=== PATIENT | male | born 1935 | race Caucasian/White ===

== ENCOUNTER 2018-11-12 16:51 | Inpatient (IN) | payer MEDICARE ==
[2018-11-12 17:22] LABS: Hemoglobin 12.5 g/dL (14.0-18.0); Mean Corpuscular HGB CONC 33.7 g/dL (32.0-36.0); Mean Corpuscular Hemoglobin 30.2 pg (27.0-31.0); Mean Corpuscular Volume 89.7 fL (78.0-98.0); Mean Platelet Volume 6.7 fL (7.4-10.4); Platelet Count 284 thou/uL (130-400); RBC Distribution Width 13.7 % (11.5-14.5); Red Blood Cell (RBC) Count 4.13 mill/uL (4.70-6.10); White Blood Cell (WBC) Count 5.7 thou/uL (4.8-10.8)
[2018-11-12 17:39] LABS: Band 4 % (5-11); Eosinophils 13 % (0-10); Lymphocytes 20 % (21-51); MDiff Complete? YES; Monocytes 12 % (0-10); Neutrophil 49 % (42-75); Platelet Morphology Comment Appears Adequate; RBC Morphology Normal
--- NOTE | 2018-11-12 17:44 | RAD ---
CHEST ONE VIEW: INDICATIONS: Shortness of breath. COMPARISON: 08/03/2016 FINDINGS: There is stable cardiomegaly and mild pulmonary vascular prominence. Chronic lung changes are stable . A dual-lead pacemaker is stable. No acute osseous abnormality is evident. IMPRESSION: Stable examination. POS: BH
[2018-11-12 17:51] LABS: ALT (SGPT) 12 U/L (8-55); AST (SGOT) 17 U/L (5-34); Albumin 3.7 g/dL (3.4-4.8); Alkaline Phosphatase 84 U/L (40-150); Anion Gap 13 mmol/L (10-20); BUN (Urea Nitrogen) 20 mg/dL (8.4-25.7); Bilirubin, Total 0.7 mg/dL (0.2-1.2); CK (CPK) 62 U/L (30-200); Calc. Creatinine Clearance 0 mL/min (70-130); Calcium 9.5 mg/dL (7.8-10.44); Carbon Dioxide 32 mmol/L (23-31); Chloride 100 mmol/L (98-107); Estimated GFR-MDRD 47; Globulin 4.4 g/dL (2.4-3.5); Glucose 76 mg/dL (83-110); Potassium 3.5 mmol/L (3.5-5.1); Protein, Total 8.1 g/dL (5.8-8.1); Sodium 141 mmol/L (136-145)
[2018-11-12 21:06] LABS: Bilirubin Negative (Negative); Blood, Urine Negative (Negative); Clarity Clear (Clear); Glucose, Urine (Dipstick) Normal (Negative); Leukocyte 25 Leu/uL (Negative); Mucous/LPF 2+ LPF (<2+); Nitrite Negative (Negative); Protein, Urine (Dipstick) Negative (Neg-Trace); RBC/HPF 0-3 HPF (0-3); Squamous Epithelial 0-3 HPF (0-3); Urobilinogen Normal mg/dL (Less than 2)
[2018-11-12 21:23] LABS: Bacteria/HPF Rare-Few HPF (None Seen)
[2018-11-12] MEDS ORDERED: Acetaminophen 650 MG Suppository PR PRN (23:30)
[2018-11-12] MEDS ORDERED: Ondansetron PF 4 MG/2 ML Vial IVP PRN (23:30)
[2018-11-12] MEDS ORDERED: Acetaminophen 325 MG TAB PO PRN (23:30)
[2018-11-12] MEDS ORDERED: Ondansetron ODT 4 MG TAB PO PRN (23:30)
[2018-11-12 23:31] VITALS: BMI 28.0
[2018-11-13 00:14] LABS: Lactic Acid 1.6 mmol/L (0.5-2.2)
[2018-11-13] MEDS ORDERED: Carvedilol 6.25 MG TAB PO SCH (00:45)
--- NOTE | 2018-11-13 00:51 | HP ---
PRIMARY CARE PHYSICIAN: Dr. Pancho Thurston. CHIEF COMPLAINT: Shortness of breath. HISTORY OF PRESENT ILLNESS: Mr. Lira is an 83-year-old man with a known history of CHF and also previous smoker. He presents complaining of progressively worsening shortness of breath for the last 3 days. He states he has had a cough for about a week, which he feels is rattly, but is unable to bring up any sputum. Denies having any fevers or chills, but reports feeling generally unwell. He states his shortness of breath tends to be worse at night and last night was at its worst. He states he was unable to sleep and felt that he could not get enough air. He opted to seek medical attention today. The patient was noted to have sats of 97% on room air on arrival to the emergency department. However, the patient had significant wheezing on exam, therefore was placed on 2 L of oxygen. He was also given DuoNebs and started on IV antibiotics for presumed pneumonia. He underwent laboratory studies which showed a normal white count of 5.7, hemoglobin of 12.5, and platelet count of 24, neutrophils 49. His creatinine was 1.43 and at baseline. He had a BNP checked, which was 446.4. No previous to compare to. A chest x-ray was done, which evidently showed stable cardiomegaly and mild pulmonary vascular prominence with chronic lung changes stable. Dr. Martinez however felt strongly that the patient likely had an infectious upper respiratory process given the cough and rales heard on exam. At this present time, following DuoNeb, the patient is feeling significantly better. He is resting comfortably in bed. Denies any other complaints. Reports having a good appetite. No urinary symptoms or bowel changes. Denies any chest pain. No hemoptysis. No lower leg edema. All other review of systems negative. PAST MEDICAL HISTORY: 1. Hypertension. 2. CHF. 3. Atrial fibrillation. 4. Pacemaker. 5. History of bladder tumor. 6. History of sick sinus syndrome. PAST SURGICAL HISTORY: 1. Pacemaker placement. 2. Right shoulder replacement. 3. Foot surgery. 4. Testicle removed. 5. TURP. SOCIAL HISTORY: The patient lives at home. Denies any alcohol use. He previously smoked heavily, but quit 2 years ago. He has a 70 pack-year smoking history. ALLERGIES: 1. IODINE. 2. PENICILLIN. CURRENT MEDICATIONS: 1. Bumetanide. 2. Tamsulosin. 3. Xarelto. 4. Atorvastatin. 5. Carvedilol. 6. Potassium. 7. Hydralazine. PHYSICAL EXAMINATION: GENERAL: The patient appears well developed, well nourished, and is in no acute distress. VITAL SIGNS: Temperature 98.7, pulse 77, respirations 20, O2 saturation 96% on 2 L, and blood pressure 152/71. HEENT: Normocephalic and atraumatic. Pupils are equal, round, reactive to light. Sclerae are without icterus. Oropharynx is clear. NECK: Supple. LUNGS: Notable for expiratory wheezing bilaterally in the upper and lower lung pappas. No crackles. CARDIAC: Normal heart sounds. No erythema or edema surrounding the pacemaker. No chest wall tenderness. ABDOMEN: Soft, nontender, nondistended. Normoactive bowel sounds present. EXTREMITIES: No lower leg swelling or edema. He does have a diffuse rash, which he states is long-standing. Seen by a laborer chicken farm in the past for this. IMPRESSION AND PLAN: Mr. Lira is a pleasant 83-year-old man with a history of congestive heart failure and long-term smoker, but not diagnosed to have chronic obstructive pulmonary disease and not normally on oxygen at home, who presents with progressive shortness of breath for the last 3 days. He is being referred for management of the followin. Pneumonia. The patient had a chest x-ray that was read as stable when compared to prior, though showing mild changes with congestive heart failure. There were no pleural effusions, pulmonary edema, or a sign of a pneumonia; however, clinically Dr. Martinez was concerned for pneumonia, therefore has started him on IV antibiotics. We will add on lactic acid and procalcitonin. We will continue DuoNebs which seemed to be helping the patient feel better. For his cough, we will give guaifenesin and Tessalon. 2. Hypertension. Resume home medications once verified. Monitor blood pressure. 3. Hyperlipidemia. Resume home medications once verified. 4. Gastrointestinal prophylaxis. 5. Deep venous thrombosis prophylaxis with mechanical SCDs. 6. Code status DNAR. The patient states his surrogate decision maker would be his daughters, Radha Shaver and Rhonda Gan. The patient's case will be discussed with attending for further recommendations. Job ID: [id number] MTDD
[2018-11-13 05:00] LABS: Anion Gap 12 mmol/L (10-20); BUN (Urea Nitrogen) 23 mg/dL (8.4-25.7); Calc. Creatinine Clearance 55 mL/min (70-130); Calcium 8.9 mg/dL (7.8-10.44); Carbon Dioxide 30 mmol/L (23-31); Chloride 102 mmol/L (98-107); Estimated GFR-MDRD 57; Glucose 102 mg/dL (83-110); Potassium 3.4 mmol/L (3.5-5.1); Sodium 141 mmol/L (136-145)
[2018-11-13 05:16] LABS: Hemoglobin 10.8 g/dL (14.0-18.0); Mean Corpuscular HGB CONC 33.6 g/dL (32.0-36.0); Mean Corpuscular Hemoglobin 30.1 pg (27.0-31.0); Mean Corpuscular Volume 89.4 fL (78.0-98.0); Mean Platelet Volume 6.7 fL (7.4-10.4); Platelet Count 242 thou/uL (130-400); RBC Distribution Width 13.5 % (11.5-14.5); White Blood Cell (WBC) Count 6.4 thou/uL (4.8-10.8)
[2018-11-13 05:17] LABS: Eosinophils 3 % (0-10); Hypochromia SLIGHT = 6-15 cells (100X) (0-5/hpf); Lymphocytes 11 % (21-51); MDiff Complete? YES; Monocytes 11 % (0-10); Neutrophil 75 % (42-75); Nucleated RBC 1 % (0); Platelet Morphology Comment Appears Adequate
[2018-11-13] MEDS: hydrALAZINE 25 MG TAB PO SCH ×3 (08:44→17:22)
[2018-11-13] MEDS: Amlodipine 5 MG TAB PO SCH (08:45)
[2018-11-13] MEDS: Atorvastatin Calcium 40 MG TAB PO SCH (08:45)
[2018-11-13] MEDS: Benzonatate 100 MG CAP PO SCH ×3 (08:46→21:16)
[2018-11-13] MEDS: Tamsulosin HCl 0.4 MG CAP PO SCH (08:46)
[2018-11-13] MEDS: Carvedilol 6.25 MG TAB PO SCH ×2 (08:46→21:16)
[2018-11-13] MEDS: Bumetanide 1 MG TAB PO SCH (08:46)
[2018-11-13] MEDS: Famotidine/PF 20 mg/2ml Vial SLOW IVP SCH (08:46)
[2018-11-13] MEDS ORDERED: Rivaroxaban 10 MG TAB PO SCH (09:00)
[2018-11-13] MEDS ORDERED: Furosemide 20 MG/2 ML VIAL SLOW IVP SCH (10:30)
[2018-11-13] MEDS: Furosemide 20 MG/2 ML VIAL SLOW IVP SCH (14:02)
[2018-11-13] MEDS: Vancomycin HCl 1.25 GM in Sodium Chloride 0.9% 250 ML 250 ML IVPB SCH (14:21)
[2018-11-13] MEDS: guaiFENesin 200 MG TAB PO PRN (14:53)
--- NOTE | 2018-11-13 16:32 | PRG ---
DATE OF SERVICE: 11/13/2018 SUBJECTIVE: Mr. Lira is a pleasant 83-year-old male with past medical history significant for chronic diastolic heart failure per last echo in 2013, hypertension, presence of cardiac pacemaker as well as presumed COPD with a 80-glrw-zlvy smoking history, who presented to the hospital with complaints of worsening shortness of breath. He described both worsening dyspnea on exertion as well as orthopnea along with cough. The patient has been treated with IV antibiotics as well as breathing treatments. He does feel much improved, although is not back to his baseline. He does tell me that he was hospitalized several weeks ago with acute CHF exacerbation, and his medications were adjusted and he was taken off his loop diuretic, and this was replaced with Bumex. In any case, the patient is improving. He denies any chest pain today. States the "rattling" in his lungs is improved. No nausea or vomiting. Good appetite. OBJECTIVE: VITAL SIGNS: Blood pressure is 139/62, pulse is 84, O2 saturation is 93% on 2 L O2 via nasal cannula, pulse is 78. The patient is afebrile at 97.8 degrees Fahrenheit. GENERAL: The patient is a moderately obese male, sitting at the edge of the bed, eating breakfast. He is in no acute distress. HEENT: Head is atraumatic and normocephalic. Mucous membranes are moist. NECK: Trachea is midline. No obvious JVD. CV: S1 and S2. Regular rate and rhythm. No appreciable murmurs, rubs, or gallops. LUNGS: Regular respiratory rate and pattern. No rhonchi. Faint crackles at the bases. ABDOMEN: Positive bowel sounds. Soft and nontender. EXTREMITIES: No edema. SKIN: Warm and dry. NEUROLOGIC: Cranial nerves 2 through 12 are grossly intact. The patient is nonfocal. LABORATORY DATA: White blood cell count 6.4, hemoglobin 10.8, hematocrit 32.8. Sodium 141, potassium 3.4, BUN is 23, creatinine is 1.21. ASSESSMENT: 1. Shortness of breath secondary to combined acute chronic obstructive pulmonary disease exacerbation and acute congestive heart failure exacerbation. 2. History of cardiomyopathy with improved ejection fraction per echo 2013, last ejection fraction noted in the chart is 50% to 55%. 3. Chronic diastolic heart failure. 4. The patient with prolonged smoking history and presumed chronic obstructive pulmonary disease. 5. Paroxysmal atrial fibrillation, CHADS-VASc at least 4, anticoagulated with Xarelto. 6. Pacemaker in-situ. 7. Shbzy-qq-mfnothb renal insufficiency at presentation, creatinine has drifted back down to baseline. PLAN: At this time, we will continue pulmonary toilet with DuoNeb and IV antibiotics. Given the patient's elevated BNP of over 400 as well as history of heart failure, we will add gentle IV diuresis and monitor his electrolytes and renal function closely. His echocardiogram is still pending at the time of my dictation. Certainly, if his EF has worsened, he may need Cardiology consult. Overall, the patient is improving. Job ID: [id number]
[2018-11-13] MEDS ORDERED: Prevnar 13-Val Conj/PF 0.5 ML SYRINGE IM ONE (21:00)
[2018-11-14 04:59] LABS: Anion Gap 9 mmol/L (10-20); BUN (Urea Nitrogen) 26 mg/dL (8.4-25.7); Calc. Creatinine Clearance 51 mL/min (70-130); Carbon Dioxide 33 mmol/L (23-31); Chloride 103 mmol/L (98-107); Estimated GFR-MDRD 54; Glucose 107 mg/dL (83-110); Potassium 3.1 mmol/L (3.5-5.1); Sodium 142 mmol/L (136-145)
[2018-11-14] MEDS: Furosemide 20 MG/2 ML VIAL SLOW IVP SCH (07:23)
[2018-11-14] MEDS ORDERED: Potassium Chloride 20 MEQ TAB PO SCH ×2 (07:45→10:00)
[2018-11-14] MEDS: hydrALAZINE 25 MG TAB PO SCH ×2 (08:55→11:01)
[2018-11-14] MEDS: Amlodipine 5 MG TAB PO SCH (08:55)
[2018-11-14] MEDS: Tamsulosin HCl 0.4 MG CAP PO SCH (08:56)
[2018-11-14] MEDS: Bumetanide 1 MG TAB PO SCH (08:56)
[2018-11-14] MEDS: Benzonatate 100 MG CAP PO SCH ×2 (08:56→14:19)
[2018-11-14] MEDS: Atorvastatin Calcium 40 MG TAB PO SCH (08:56)
[2018-11-14] MEDS: Carvedilol 6.25 MG TAB PO SCH (08:56)
[2018-11-14] MEDS: Famotidine/PF 20 mg/2ml Vial SLOW IVP SCH (08:57)
[2018-11-14] MEDS ORDERED: Furosemide 20 MG TAB PO SCH (09:00)
[2018-11-14] MEDS: guaiFENesin 200 MG TAB PO PRN (11:01)
[2018-11-14 13:47] LABS: Vancomycin, Trough 9.1 ug/mL
[2018-11-14] MEDS: Vancomycin HCl 1.25 GM in Sodium Chloride 0.9% 250 ML 250 ML IVPB SCH (14:20)
--- NOTE | 2018-11-14 14:22 | PQF ---
CLINICAL DOCUMENTATION IMPROVEMENT CLARIFICATION FORM: ICD-10 Updated PLEASE DO AN ADDENDUM TO THE PROGRESS NOTE WITH ANY DOCUMENTATION UPDATES OR ADDITIONS AND CARRY THROUGH TO DC SUMMARY. THANK YOU. DATE: 11/14/2018 ATTN: Devorah Squires PA-C Please exercise your independent, professional judgment in responding to the clarification form. Clinical indicators are provided on the bottom of this form for your review Please check appropriate box(s): [ ] Acute Renal Failure (ARF) / Acute Kidney Injury (CARYN) [ X ] Acute on Chronic Renal Failure please specify Stage of CKD ___III (see below) [ ] CKD without ARF/CARYN please specify Stage of CKD [ ] Other diagnosis [ ] Unable to determine In addition, please specify: Present on Admission (POA): [ X] Yes [ ] No [ ] Unable to determine For continuity of documentation, please document condition throughout progress notes and discharge summary. Thank You. CLINICAL INDICATORS - SIGNS / SYMPTOMS / LABS PN 11/13 (Shaw): creatinine 1.21 Jweeq-vu-egqvppc renal insufficiency at presentation, creatinine has drifted back down to baseline 11/12 11/14 LABS: Creatinine 1.43 1.28 Estimated GFR 47 54 RISKS: H&P 11/13: PMH HTN, CHF, ATRIAL FIB. TREATMENT: PN 11/13: Given the pt's elevated BNP >400 as well as hx of heart failure, will add gentle IV diuresis and monitor his electrolytes and renal function closely. National Kidney Foundation Guidelines for CKD Staging Stage I Kidney damage with normal or increased GFR GFR > 90 Stage II Kidney damage with mildly decreased GFR GFR 60-89 Stage III Kidney damage with moderately decreased GFR GFR 30-59 Stage IV Kidney damage with severely decreased GFR GFR 16-29 Stage V Kidney failure GFR<15 ESRD End Stage Renal Disease On dialysis Acute Renal Failure/Acute Kidney Failure defined as: Increases in SCr by (>) 0.3 mg/dl within 48 hours OR- Increases in SCr by (>) 1.5 times baseline, known or presumed to have occurred within the prior 7 days OR- Urine volume < 0.5 ml/kg/hour for 6 hours (KDIGO supplement 2012 for RIFLE/MIRYAM criteria) Thank you, Gia (This form is maintained as a part of the permanent medical record) 2014 [employer] All Rights Reserved Gia Edwards RN, BSN [email or web address] Office: [phone] [facility] HOSPITALStacy
[2018-11-14 14:28] LABS: Potassium 3.4 mmol/L (3.5-5.1)
[2018-11-14 15:45] VITALS: BP 145/81; TEMP 97.6
[2018-11-14] MEDS ORDERED: Vancomycin HCl 1.5 GM in Sodium Chloride 0.9% 250 ML 300 ML IVPB SCH (16:00)
--- NOTE | 2018-11-14 16:27 | DIS ---
DATE OF ADMISSION: 11/12/2018 DATE OF DISCHARGE: 11/14/2018 CHIEF COMPLAINT ON ADMISSION: Shortness of breath. DISCHARGE DIAGNOSES: 1. Shortness of breath secondary to combined acute chronic obstructive pulmonary disease exacerbation and acute congestive heart failure exacerbation. 2. Heart failure with preserved ejection fraction, echocardiogram in this hospitalization revealed ejection fraction estimated at 50% to 55%. 3. A 38-pdpw-wety smoking history, with the patient quitting 2 years ago, presumed chronic obstructive pulmonary disease. No formal PFTs on record. 4. Paroxysmal atrial fibrillation, CHADS-VASc at least 4, anticoagulated with Xarelto. 5. Pacemaker in-situ. 6. Fyppd-jr-aefsfgk renal insufficiency at presentation; chronic kidney disease, stage 3, resolved. BRIEF HOSPITAL COURSE: The patient is a pleasant, 83-year-old, male with past medical history as outlined above, who presented to the hospital with complaints of worsening shortness of breath. The patient described both dyspnea on exertion as well as orthopnea. He also had some "rattling" in his lungs and what felt to be a productive cough, although he could never get up any sputum. Because of his worsening symptoms, he did present to the emergency department for further workup and treatment. His chest x-ray was clear of any pneumonia, although secondary to his symptoms, COPD exacerbation was suspected. He was treated with IV antibiotics as well as DuoNeb. His BNP was noted to be over 400, and he was gently diuresed. His creatinine on arrival to the hospital was 1.43, and it is now 1.28. The patient has ambulated the halls and maintained his oxygen saturations. He states that he is back to his baseline. At this time, he denies any chest pain or shortness of breath. DISCHARGE DISPOSITION: Home. DISCHARGE CONDITION: Stable. DISCHARGE MEDICATIONS: He will continue his home medications, which include: 1. Amlodipine 2.5 mg daily. 2. Atorvastatin 40 mg p.o. daily. 3. Bumetanide 2 mg p.o. daily. 4. Carvedilol 12.5 mg p.o. b.i.d. 5. Hydralazine 50 mg p.o. t.i.d. 6. K-Dur 20 mEq p.o. b.i.d. 7. Rivaroxaban 20 mg p.o. daily. 8. Tamsulosin 0.4 mg p.o. daily. He will restart his Lasix at 20 mg p.o. daily. New medication will be levofloxacin 500 mg p.o. daily x5 days. DISCHARGE INSTRUCTIONS AND FOLLOWUP: The patient will follow up with both his primary activity specialist, Dr. Rojas as well as his primary care physician, who is Dr. Thurston in [place]. All findings of testing and diagnoses have been explained to the patient, and all questions were answered. I have advised for him to talk to Dr. Thurston about a possible Pulmonary referral for formal PFTs given his extensive smoking history and likely diagnosis of COPD. He will return to the hospital with any return or worsening of symptoms. Job ID: [id number]
[2018-11-14] MEDS ORDERED: Rivaroxaban 15 MG TAB PO SCH (17:00)
--- NOTE | 2018-11-15 15:41 | EKG ---
Test Reason : Blood Pressure : / mmHG Vent. Rate : 077 BPM Atrial Rate : 072 BPM P-R Int : 000 ms QRS Dur : 174 ms QT Int : 488 ms P-R-T Axes : 000 -74 090 degrees QTc Int : 552 ms Electronic ventricular pacemaker Confirmed by ZIA JALLOH, DANIELLE Naqvi ([id number]), sound editor MACHO SMITH ([id number]) on 11/15/2018 3:40:54 PM Referred By: Confirmed By:DANIELLE LIZARRAGA MD
== END 2018-11-14 16:19 | disposition home or self-care (01) | DRG 291 ==
LOC: ERS 16:51 → 2SE 21:56
PROVIDERS: ADMIT Internal Medicine; ATTEND Internal Medicine
DX: I13.0 Hypertensive heart and chronic kidney disease with heart failure and stage 1 through stage 4 chronic kidney disease, or unspecified chronic kidney disease (principal); I50.33 Acute on chronic diastolic (congestive) heart failure; N17.9 Acute kidney failure, unspecified; J44.1 Chronic obstructive pulmonary disease with (acute) exacerbation; Z66 Do not resuscitate; N18.3 Chronic kidney disease, stage 3 (moderate); I48.0 Paroxysmal atrial fibrillation; I49.5 Sick sinus syndrome; E78.5 Hyperlipidemia, unspecified; I42.9 Cardiomyopathy, unspecified; Z79.01 Long term (current) use of anticoagulants; Z95.0 Presence of cardiac pacemaker; Z87.891 Personal history of nicotine dependence; Z88.0 Allergy status to penicillin; Z79.899 Other long term (current) drug therapy; Z91.041 Radiographic dye allergy status
CPT/HCPCS: 36415; 71045; 80048; 80053; 80202; 81003; 81015; 82550; 83605; 83880; 84145; 84484; 85025; 87040; 87149; 90471; 90670; 93005; 93306; 93798; 94640; 96365; 96366; 96367; G0009; J1940; J1956; J3370; J7050; J7620; S0028

== ENCOUNTER 2019-02-07 13:11 | Outpatient (CLI) | payer MEDICARE ==
--- NOTE | 2019-02-07 15:08 | CT ---
CT CHEST WITHOUT CONTRAST HIGH RESOLUTION: CLINICAL HISTORY: Idiopathic pulmonary fibrosis. COMPARISON: No prior CT thorax imaging available for comparison. FINDINGS: There is diffuse interstitial septal thickening with scattered subpleural interstitial and alveolar o pacities. Mild bronchiectasis is present bilaterally. There is superimposed bilateral pulmonary emphysema. Mild prominence of mediastinal lymph nodes is incompletely evaluated. The largest lymph node of the p recarinal region as demonstrated is1.6 cm in diameter. Scattered atherosclerotic vascular disease. IMPRESSION: Scattered subpleural interstitial and ground glass opacities as well as generalized interstitial sept al thickening throughout each lung, with mild associated bronchiectasis is consistent with idiopathic pulmonary fibrosis. Incidental note of mediastinal adenopathy, incompletely evaluated on the basis of this exam. Transcribed Date/Time: 02/07/2019 3:35 PM
--- NOTE | 2019-02-08 11:27 | PFT ---
PATIENT HISTORY: HEIGHT: 68 IN WEIGHT: 190 LBS SMOKER: NO HOW LON YRS PACKS PER DAY: 1.5 PRODUCTIVE COUGH: LUNG DISEASE: PHYSICIAN INTERPRETATION FINAL REPORT: Patient had good effort and good cooperation. FVC 2.60 (54%), FEV1 2.58 (73%), FEV1/FVC 0.66. RV 1.58 (55%), TLC 4.29 (67%) DIFFUSION 9.29 (37%) There is a mostly symmetric reduction to both the FEV1 and FVC. The ratio is just below the lower limits of normal, which maybe a normal variant for an 84 year old. Residual Volume and Total Lung Capacity are reduced confirming volume restriction. Diffusion Capacity is severely impaired. IMPRESSION: Overall, these pulmonary function studies are consistent with moderate restrictive lung process with no significant improvement following bronchodilator and severe reduction in gas exchange. Minimal superimposed obstructive component cannot be completely excluded. Nuclear Fuels Reclamation Engineer: SHAY Requirements Analyst: SHAY STRICKLAND
== END 2019-02-07 13:12 | disposition home or self-care (01) ==
LOC: CP 13:11 → CT 13:12
PROVIDERS: ATTEND Internal Medicine Critical Care Medicine
DX: J84.10 Pulmonary fibrosis, unspecified (principal); R06.00 Dyspnea, unspecified; R91.8 Other nonspecific abnormal finding of lung field; J47.9 Bronchiectasis, uncomplicated; R59.0 Localized enlarged lymph nodes
CPT/HCPCS: 71250; 94060; 94727; 94729

== ENCOUNTER 2019-05-16 00:55 | Inpatient (IN) | payer MEDICARE ==
--- NOTE | 2019-05-16 01:24 | PDOC.HHP ---
Hospitalist HPI - History of Present Illness History of Present Illness: multifocal pneumonia hawk villavicencio 2L has tire repairman
[2019-05-16] MEDS ORDERED: Sodium Chloride 0.9% 1,000 ML IV SCH (03:30)
[2019-05-16 03:31] VITALS: BMI 30.2
[2019-05-16] MEDS ORDERED: cefTRIAXone\\ROCEPHIN 1 GM in Sodium Chloride 0.9% 100 ML IVPB SCH (04:00)
[2019-05-16] MEDS ORDERED: Azithromycin 500 MG in Sodium Chloride 0.9% 250 ML 250 ML IVPB SCH (05:00)
[2019-05-16] MEDS ORDERED: Acetaminophen 325 MG TAB PO PRN (08:45)
[2019-05-16] MEDS: Famotidine 20 MG TAB PO SCH ×2 (09:34→20:20)
--- NOTE | 2019-05-16 12:48 | HP ---
CHIEF COMPLAINT: Shortness of breath and cough. HISTORY OF PRESENT ILLNESS: The patient is an 84-year-old male, who presented to the [place] [facility] with sudden onset of a shortness of breath associated with dry cough, fever, and chills. Apparently, he was doing quite well until last night when everything started. He was found to have pneumonia on the CT and x-rays of his chest and sent to our facility for further management of his pneumonia and CHF. He denies any vomiting, but he had some nausea. When he is asked specifically about the chest pain, he denies any chest pain, although he mentioned about the chest pain to the emergency room staff. PAST MEDICAL HISTORY: Positive for; 1. Congestive heart failure. 2. Chronic atrial fibrillation. 3. Coronary artery disease. 4. Hypertension. 5. Osteoarthritis. 6. Pacemaker. PAST SURGICAL HISTORY: 1. Malignant tumor bladder, urinary bladder resection. 2. Cardiac pacemaker placement. 3. Cholecystectomy. 4. Transurethral resection of the prostate. PRIMARY CARE PHYSICIAN: Dr. Griffith in [place]. SURROGATE DECISION MAKER: Capri, the patient's daughter. MEDICATIONS: The patient is taking; 1. Bumex 2 mg once a day. 2. Flomax 0.4 mg once a day. 3. Xarelto 20 mg once a day. 4. Atorvastatin 40 mg once a day. 5. Carvedilol 12.5 mg twice a day. 6. Potassium chloride 20 mEq twice a day. 7. Hydralazine 50 mg three times a day. ALLERGIES: PENICILLIN AND IODINE. FAMILY HISTORY: Father of [place] in his early 70s. Mother during childbirth in her young age. SOCIAL HISTORY: He used to smoke, but quit 4 years ago. He drinks alcohol socially. He does not use any illicit drugs. REVIEW OF SYSTEMS: All 14 systems were reviewed and only symptoms which are mentioned in HPI are positive. Otherwise, they are negative. PHYSICAL EXAMINATION: VITAL SIGNS: Blood pressure is 95/58, pulse is 68, temperature is 97.9, respirations 18, O2 saturation is 96% on 4 L by nasal cannula. HEENT: His head is atraumatic and normocephalic. Eyes are PERRLA. Sclerae are nonicteric. Oral mucosa is moist. NECK: Supple. LUNGS: Bilateral rales and some wheezing present on both sides in both lungs. HEART: S1 and S2. Irregularly irregular. No S3. No S4. No any murmur. ABDOMEN: Soft, nontender, nondistended. EXTREMITIES: No clubbing, cyanosis, or edema. NEUROLOGIC: He is alert and oriented x4. There are no any sensory or motor deficits present. Cranial nerves are intact. LABORATORY DATA: Labs showed white count of 10.5, hemoglobin 9.3, hematocrit 29.9, platelet count 267,000. INR is 2.3. Prothrombin time is 25.2. Creatinine 1.24, BUN 21, sodium 140, potassium 3.7, chloride 104, CO2 of 24, glucose 142. BNP 469. Troponin-I 0.02. Influenza A and B negative. Occult blood test negative. Procalcitonin 0.05. IMAGING STUDIES: An electrocardiogram personally reviewed by me showed atrial fibrillation with ventricular rate controlled with T-wave inversions in lead II, III, and aVR and lateral precordial leads. CT of the chest showed focal areas of consolidation in the bilateral lower lobes suspicious for multifocal pneumonia along with cardiomegaly with interstitial prominence bilateral likely sequela of CHF with interstitial edema. Also, there is some mediastinal lymphadenopathy likely reactive. Chest x-ray showed CHF. IMPRESSION: 1. Multifocal pneumonia. 2. Exacerbation of congestive heart failure. 3. Chest pain. 4. Normocytic anemia with negative guaiac, and no history of any black tarry stools or any form of GI blood loss. 5. Chronic atrial fibrillation. 6. History of coronary artery disease. 7. Hypertension. 8. Pacemaker. 9. Osteoarthritis. PLAN: Transfer the patient to telemetry floor. Continue azithromycin and Rocephin for his pneumonia. Obtain Cardiology consultation with Dr. Rojas, his primary subwarehouse supervisor. DuoNeb q.4 hours. If blood pressure allows us, we will continue Lasix smaller dose 20 mg IV push every 12 hours. His systolic blood pressure is 95 this morning. Also, I am going to continue his Xarelto and potassium 20 mEq once a day. We will do DVT prophylaxis with SCDs and he is already on Xarelto, so he does not require any Lovenox. Also, we will do GI, PUD prophylaxis with H2 ilda. Job ID: [id number]
[2019-05-16] MEDS: Furosemide 20 MG/2 ML VIAL SLOW IVP SCH (15:05)
--- NOTE | 2019-05-16 16:34 | CON ---
DATE OF CONSULTATION: HISTORY OF PRESENT ILLNESS: The patient is a pleasant 84-year-old gentleman with history of chronic atrial fibrillation and placement of electronic pacemaker, who presents with dyspnea and fever. The patient has previously had placement of electronic pacemaker. The patient has chronic atrial fibrillation,and takes Xarelto. The patient had a history of one time of a cardiomyopathy, which was felt to be secondary to right ventricular pacing. The patient was in his usual state of health when he started developing fevers, chills, and difficulty breathing. The patient denied having any chest discomfort. PAST MEDICAL HISTORY: 1. Chronic atrial fibrillation. 2. History of pacemaker placement. 3. Hypertension. 4. Sleep apnea. 5. Asbestosis. PAST SURGICAL HISTORY: Tonsillectomy and cholecystectomy. FAMILY HISTORY: Positive family history of heart disease. SOCIAL HISTORY: Nonsmoker. ALLERGIES: IODINE AND AMOXICILLIN. MEDICATIONS: 1. Flomax 0.4 daily. 2. Norvasc 2.5 daily. 3. Lipitor 40 at bedtime. 4. Coreg 12.5 b.i.d. 5. Hydralazine 50 t.i.d. 6. Lasix 20 daily. 7. Xarelto 20 daily. 8. KCl 20 daily. 9. Bumex 2 mg daily. REVIEW OF SYSTEMS: Ten-point system otherwise unremarkable. PHYSICAL EXAMINATION: GENERAL: Obese gentleman, in mild distress. VITAL SIGNS: Blood pressure was 149/67 and temperature is 98.2. NECK: Full. LUNGS: Coarse breath sounds bilateral with scattered wheezes throughout the lung pappas. HEART: Irregular rate and rhythm with a 2/6 systolic murmur. ABDOMEN: Distended. EXTREMITIES: Showed trace edema. VASCULAR: Radial pulse 2+. LABORATORY DATA: White blood cell count was 10.5, hemoglobin 9.3, hematocrit 29.9, and platelets 267. INR was 2.3. Troponin was 0.02. Sodium was 140, potassium 3.7, chloride 104, bicarbonate 24, BUN 21, creatinine was 1.24, and glucose 142. His EKG revealed atrial fibrillation with a nonspecific ST-T wave abnormality. CT scan revealed probable bilateral pneumonia. IMPRESSION: 1. Pneumonia. 2. History of cardiomyopathy. 3. History of pacemaker placement. 4. Chronic atrial fibrillation. 5. Hypertension. 6. Asbestosis. This gentleman presents with probable pneumonia. He had fevers, chills, and elevated temperature. The patient being treated with IV antibiotics. From a cardiac standpoint, he should continue on Xarelto. We will follow this patient with you through his hospitalization. Job ID: [id number] MTDD
[2019-05-16] MEDS: Rivaroxaban 10 MG TAB PO SCH (17:40)
[2019-05-16 19:14] LABS: Hemoglobin 8.4 g/dL (14.0-18.0); Platelet Count 237 thou/uL (130-400)
[2019-05-16] MEDS: Melatonin 3 MG TAB PO PRN (21:23)
[2019-05-17 04:58] LABS: #Lymphocytes 1.1 thou/uL (1.20-3.40); #Monocytes 0.9 thou/uL (0.11-0.59); #Neutrophils 7.3 thou/uL (1.40-6.50); %Basophils 0.3 % (0.0-1.0); %Eosinophils 0.4 % (0.0-10.0); %Lymphocytes 11.4 % (21.0-51.0); %Monocytes 9.8 % (0.0-10.0); %Neutrophils 78.2 % (42.0-75.0); Hemoglobin 8.3 g/dL (14.0-18.0); Mean Corpuscular HGB CONC 32.1 g/dL (32.0-36.0); Mean Corpuscular Hemoglobin 28.5 pg (27.0-31.0); Mean Corpuscular Volume 88.8 fL (78.0-98.0); Mean Platelet Volume 6.8 fL (7.4-10.4); Platelet Count 234 thou/uL (130-400); RBC Distribution Width 14.6 % (11.5-14.5); Red Blood Cell (RBC) Count 2.91 mill/uL (4.70-6.10); White Blood Cell (WBC) Count 9.3 thou/uL (4.8-10.8)
[2019-05-17 05:27] LABS: Anion Gap 8 mmol/L (10-20); BUN (Urea Nitrogen) 28 mg/dL (8.4-25.7); Calc. Creatinine Clearance 51 mL/min (70-130); Calcium 8.5 mg/dL (7.8-10.44); Carbon Dioxide 31 mmol/L (23-31); Chloride 103 mmol/L (98-107); Estimated GFR-MDRD 50; Glucose 112 mg/dL (83-110); Potassium 3.7 mmol/L (3.5-5.1); Sodium 138 mmol/L (136-145)
[2019-05-17] MEDS: Furosemide 20 MG/2 ML VIAL SLOW IVP SCH ×2 (06:12→15:18)
--- NOTE | 2019-05-17 08:50 | RAD ---
CHEST 2 VIEWS: HISTORY: Congestive heart failure. COMPARISON: 11/12/2018. FINDINGS: Left transvenous pacemaker. Cardiomegaly. Increased linear and interstitial markings bilaterally wi th some reticulonodular parenchymal changes, all of which appear to be stable. Postop changes right shoulder and left shoulder. IMPRESSION: Cardiomegaly somewhat more prominent in size than prior 2017 study but stable from 11/12/2018. Overal l stable interstitial and reticulonodular parenchymal changes bilaterally, evidence for nonspecific c hronic interstitial lung disease. No confluent pneumonia, overt edema, or other new process. POS: OFF
[2019-05-17] MEDS: Famotidine 20 MG TAB PO SCH ×2 (09:01→21:06)
--- NOTE | 2019-05-17 10:32 | PRG ---
DATE OF SERVICE: 05/17/2019 SUBJECTIVE: The patient is seen and examined at the bedside. He is feeling significantly better. He still has a lot of dry coughing. He is not able to bring up anything. His shortness of breath improved. OBJECTIVE: VITAL SIGNS: Blood pressure is 126/58, pulse is 82, temperature is 98.3, respirations 16, O2 saturation is 95% on 2 L by nasal cannula. HEENT: His head is atraumatic and normocephalic. Eyes are PERRLA. Sclerae are nonicteric. Oral mucosa is moist. NECK: Supple. LUNGS: Over the right lung, there was lot of rales and crackles. Basically, it sounds like yesterday. No wheezing. HEART: S1, S2 normal. No S3. No S4. ABDOMEN: Soft, nontender, nondistended. EXTREMITIES: No clubbing, cyanosis, or edema. LABORATORY DATA: White count of 9.3, hemoglobin 8.3, hematocrit 25.8, platelet count is 234,000. Normal electrolytes. BUN of 28, creatinine 1.35. Glucose 112. Chest x-ray done this morning showed cardiomegaly with an interstitial and reticular nodular parenchymal changes bilaterally. ASSESSMENT: 1. Multifocal pneumonia. 2. Exacerbation of congestive heart failure, improved. 3. Chest pain, resolved. 4. Normocytic anemia with negative guaiac, and no history of black tarry stools or any form of GI blood loss. 5. Chronic atrial fibrillation, rate controlled. 6. History of coronary artery disease. 7. Hypertension. 8. Pacemaker. 9. Osteoarthritis. PLAN: Continue acid azithromycin and Rocephin. Cardiology saw the patient and they recommend to continue his CHF regimen. We will continue DuoNebs and mild diuresis. We will continue his Xarelto and potassium, and we will get PT and OT. Job ID: [id number]
[2019-05-17] MEDS: cefTRIAXone\\ROCEPHIN 1 GM in Sodium Chloride 0.9% 100 ML IVPB SCH (10:51)
[2019-05-17] MEDS: hydrALAZINE 25 MG TAB PO SCH ×2 (11:39→16:57)
[2019-05-17] MEDS: Azithromycin 500 MG in Sodium Chloride 0.9% 250 ML 250 ML IVPB SCH (11:41)
[2019-05-17] MEDS: Rivaroxaban 10 MG TAB PO SCH (16:56)
[2019-05-17] MEDS: Potassium Chloride 20 MEQ TAB PO SCH (21:05)
[2019-05-17] MEDS: Melatonin 3 MG TAB PO PRN (21:05)
[2019-05-17] MEDS: Carvedilol 25 MG TAB PO SCH (21:06)
[2019-05-18 05:11] LABS: #Eosinphils 0.3 thou/uL (0.0-0.7); #Lymphocytes 1.3 thou/uL (1.20-3.40); #Monocytes 0.8 thou/uL (0.11-0.59); #Neutrophils 4.5 thou/uL (1.40-6.50); %Basophils 0.5 % (0.0-1.0); %Eosinophils 4.2 % (0.0-10.0); %Lymphocytes 18.2 % (21.0-51.0); %Monocytes 11.7 % (0.0-10.0); %Neutrophils 65.4 % (42.0-75.0); Hemoglobin 7.8 g/dL (14.0-18.0); Mean Corpuscular HGB CONC 31.3 g/dL (32.0-36.0); Mean Corpuscular Hemoglobin 27.9 pg (27.0-31.0); Mean Platelet Volume 6.8 fL (7.4-10.4); Platelet Count 225 thou/uL (130-400); RBC Distribution Width 14.4 % (11.5-14.5); Red Blood Cell (RBC) Count 2.79 mill/uL (4.70-6.10)
[2019-05-18 05:42] LABS: Anion Gap 12 mmol/L (10-20); BUN (Urea Nitrogen) 26 mg/dL (8.4-25.7); Calc. Creatinine Clearance 60 mL/min (70-130); Calcium 8.4 mg/dL (7.8-10.44); Carbon Dioxide 29 mmol/L (23-31); Chloride 104 mmol/L (98-107); Estimated GFR-MDRD 61; Glucose 84 mg/dL (83-110); Potassium 3.6 mmol/L (3.5-5.1); Sodium 141 mmol/L (136-145)
[2019-05-18] MEDS: Furosemide 20 MG/2 ML VIAL SLOW IVP SCH (06:17)
[2019-05-18] MEDS ORDERED: Amlodipine 5 MG TAB PO SCH (09:00)
[2019-05-18] MEDS: Tamsulosin HCl 0.4 MG CAP PO SCH (09:23)
[2019-05-18] MEDS: Potassium Chloride 20 MEQ TAB PO SCH ×2 (09:23→20:29)
[2019-05-18] MEDS: hydrALAZINE 25 MG TAB PO SCH ×3 (09:23→17:37)
[2019-05-18] MEDS: Famotidine 20 MG TAB PO SCH ×2 (09:23→20:29)
[2019-05-18] MEDS: Carvedilol 25 MG TAB PO SCH ×2 (09:23→20:29)
[2019-05-18] MEDS: cefTRIAXone\\ROCEPHIN 1 GM in Sodium Chloride 0.9% 100 ML IVPB SCH (11:15)
[2019-05-18] MEDS: Azithromycin 500 MG in Sodium Chloride 0.9% 250 ML 250 ML IVPB SCH (12:15)
--- NOTE | 2019-05-18 12:27 | PRG ---
DATE OF SERVICE: 05/18/2019 SUBJECTIVE: The patient is seen and examined at the bedside. He started having some hemoptysis this morning. Appetite is good. He does not have more complaints to offer. OBJECTIVE: VITAL SIGNS: Blood pressure is 154/77, pulse is 69, respirations 18, O2 saturation is 97% on 2L by nasal cannula. HEENT: His head is atraumatic and normocephalic. Eyes are PERRLA. Sclerae are nonicteric. Oral mucosa is moist. NECK: Supple. LUNGS: Bilateral rales and crackles at both bases. HEART: S1, S2 normal. Irregularly irregular. No S3. No S4. ABDOMEN: Soft, nontender. EXTREMITIES: No clubbing, cyanosis, or edema. NEUROLOGIC: He follows my commands. He moves his all 4 extremities. There are no any sensory or motor deficits. LABORATORY DATA: Labs showed white count of 7.0, hemoglobin 7.8, hematocrit 24.8, platelet count is 225,000. Normal electrolytes. BUN of 26, creatinine 1.14, glucose 84, calcium 8.4, estimated GFR 61. IMPRESSION: 1. Bilateral pneumonia. 2. Congestive heart failure. 3. Chest pain, resolved. 4. Normocytic anemia with negative guaiac, and no history of black tarry stools. Hemoglobin down to 7.8 today. We will hold Xarelto if it is okay with Cardiology. 5. Chronic atrial fibrillation, rate controlled. 6. History of coronary artery disease. 7. Hypertension. 8. Pacemaker. 9. Asbestosis. 10. History of abdominal aortic aneurysm. 11. Hyperlipidemia. PLAN: Continue current regimen with Rocephin and azithromycin. If his hemoptysis get worse, we will stop Xarelto. The patient is seen by Dr. Rojas for cardiology evaluation. The patient will continue his DuoNeb. Continue his PT and OT. We will switch him to oral Lasix and we will get Pulmonary consult with Dr. Gracia. Job ID: [id number]
[2019-05-18] MEDS: Furosemide 20 MG TAB PO SCH (14:17)
[2019-05-18] MEDS: Atorvastatin Calcium 40 MG TAB PO SCH (20:29)
--- NOTE | 2019-05-18 20:31 | CON ---
DATE OF CONSULTATION: 05/18/2019 SERVICE: Pulmonary Medicine. REASON FOR CONSULTATION: Hemoptysis. HISTORY OF PRESENT ILLNESS: The patient is an 84-year-old white male with past medical history significant for interstitial lung disease. He was in his usual state of health when he had an acute onset of infectious symptoms with increasing shortness of breath, cough, green sputum production. Ultimately, he presented to [facility] and a CT scan showed bilateral layering pneumonias in the dependent posterior regions of his lungs. He was put on appropriate antibiotics. He has been in the hospital for the past 3 days and has had a profound improvement in symptoms. That being said, overnight, he started getting a bloody nose and increasing nasal congestion. This morning, everything "broke loose" and he started coughing up slimy green/bloody mucus. Every time he would blow his nose, a significant gobs of the same material was coming out of it. As the day went by, this settled down completely and now he can breathe through his nose. He denies any current fevers, chills, nausea, or vomiting. His breathing is back to baseline. He has been walking with physical therapy without much difficulties and indicates his exertion is back to baseline. PAST MEDICAL HISTORY: 1. Congestive heart failure. 2. Atrial fibrillation, chronic. 3. Coronary artery disease. 4. Hypertension. 5. Osteoarthritis. 6. Pacemaker placement. 7. Obstructive sleep apnea, previously not able to tolerate noninvasive therapy. 8. Interstitial lung disease, possibly going to progress to IPF. PAST SURGICAL HISTORY: 1. Bladder tumor, status post resection. 2. Pacemaker placement. 3. Cholecystectomy. 4. Transurethral resection of the prostate. SOCIAL HISTORY: Negative for alcohol, tobacco, or illicit drug use. He has no exposure to chemicals, dust, asbestos, or tuberculosis. He has a greater than 35-[id number]-[id number] history of smoking, but quit over 4 years ago. FAMILY HISTORY: Noncontributory. ALLERGIES: PENICILLIN, IODINE. MEDICATIONS: List of his inpatient medications was reviewed. No specific updates were made at this time. REVIEW OF SYSTEMS: General, head, ears, eyes, nose, throat, cardiovascular, respiratory, GI, , musculoskeletal, neurologic, and skin is negative except as mentioned in the HPI. PHYSICAL EXAMINATION: VITAL SIGNS: Afebrile, pulse 76, blood pressure 136/71, respirations 16, and saturation 96% on 2 L nasal cannula. GENERAL: The patient is awake and alert, in no apparent distress. LUNGS: Very good air entry. Rhonchi are present, but clear beautifully with a good cough. He has dependent crackles present. HEART: Normal rate. Regular. ABDOMEN: Soft, nontender, and nondistended. Bowel sounds are positive. MUSCULOSKELETAL: No cyanosis or clubbing. There is minimal pitting in bilateral lower extremities. NEUROLOGIC: Grossly nonfocal. LABORATORY DATA: WBC 7.0, hemoglobin 7.8, and platelets 225,000. Basic metabolic profile is unremarkable with a creatinine that is beautifully improved to 1.14. IMAGING DATA: CT of the chest from [facility] demonstrates bilateral dependent posterior pneumonias in the region of the expected distribution, where he to have significant aspiration in the supine position. Mediastinal lymphadenopathy is present. There is subtle interstitial lung changes that were more pronounced on a high-resolution CT scan from 2019. No obvious masses are present. I carefully inspected the trachea and bilateral bronchi, I did not see any endobronchial disease there. ASSESSMENT: 1. Acute on chronic hypoxic respiratory failure, returned to baseline. 2. Community-acquired pneumonia secondary to likely aspiration-related event in the supine position. 3. Gastroesophageal reflux disease. 4. Obstructive sleep apnea, not currently treated secondary to non-tolerance of mask. 5. Pseudohemoptysis secondary to nosebleed. DISCUSSION AND PLAN: I do not see anything alarming on the CT of the chest. His hemoptysis was in conjunction with significant amounts of the same material that he would blow from his nose. My suspicion is that the hemoptysis was draining into the back of the throat that he would subsequently liberate. This requires no additional investigation unless it recurs without nosebleed. I have requested that he elevate head of bed for life, and avoid p.o. within 2 hours of sleep including water to minimize his aspiration of material in the evening time. Lastly, he will discuss a total face mask with Dr. Warren as this may be better tolerated. At this point , he has no further requirements for inpatient Pulmonary or Critical Care opinion, and I will sign off. Please call with additional questions or concerns through time. 70 minutes have been devoted to this patient in various activities. I personally reviewed all imaging studies and laboratory data noted within this document. For fifty percent of this time, I was interacting with the patient at the bedside or coordinating care with the care team. For the remainder of the time I was immediately available to the patient in the hospital unit. Job ID: [id number] MTDD
[2019-05-18] MEDS: Melatonin 3 MG TAB PO PRN (22:30)
[2019-05-19 04:17] LABS: #Eosinphils 0.7 thou/uL (0.0-0.7); #Lymphocytes 1.2 thou/uL (1.20-3.40); #Monocytes 0.8 thou/uL (0.11-0.59); %Basophils 0.2 % (0.0-1.0); %Eosinophils 12.3 % (0.0-10.0); %Lymphocytes 21.2 % (21.0-51.0); %Monocytes 13.9 % (0.0-10.0); %Neutrophils 52.4 % (42.0-75.0); Hemoglobin 7.4 g/dL (14.0-18.0); Mean Corpuscular HGB CONC 32.1 g/dL (32.0-36.0); Mean Corpuscular Hemoglobin 28.4 pg (27.0-31.0); Mean Corpuscular Volume 88.7 fL (78.0-98.0); Mean Platelet Volume 6.6 fL (7.4-10.4); Platelet Count 222 thou/uL (130-400); RBC Distribution Width 14.2 % (11.5-14.5); Red Blood Cell (RBC) Count 2.62 mill/uL (4.70-6.10); White Blood Cell (WBC) Count 5.7 thou/uL (4.8-10.8)
[2019-05-19 04:31] LABS: Anion Gap 10 mmol/L (10-20); BUN (Urea Nitrogen) 28 mg/dL (8.4-25.7); Calc. Creatinine Clearance 76 mL/min (70-130); Calcium 8.6 mg/dL (7.8-10.44); Carbon Dioxide 29 mmol/L (23-31); Chloride 105 mmol/L (98-107); Estimated GFR-MDRD 81; Glucose 92 mg/dL (83-110); Potassium 3.8 mmol/L (3.5-5.1); Sodium 140 mmol/L (136-145)
[2019-05-19] MEDS ORDERED: Sodium Chloride 0.9% 10 ML ONE ×2 (08:42→11:32)
[2019-05-19] MEDS: hydrALAZINE 25 MG TAB PO SCH ×3 (08:47→17:50)
[2019-05-19] MEDS: Tamsulosin HCl 0.4 MG CAP PO SCH (08:47)
[2019-05-19] MEDS: Famotidine 20 MG TAB PO SCH ×2 (08:47→20:17)
[2019-05-19] MEDS: Carvedilol 25 MG TAB PO SCH ×2 (08:47→20:17)
[2019-05-19] MEDS: Furosemide 20 MG TAB PO SCH ×2 (08:47→15:17)
[2019-05-19] MEDS: Potassium Chloride 20 MEQ TAB PO SCH ×2 (08:47→20:17)
[2019-05-19] MEDS: cefTRIAXone\\ROCEPHIN 1 GM in Sodium Chloride 0.9% 100 ML IVPB SCH (11:38)
[2019-05-19] MEDS: Azithromycin 500 MG in Sodium Chloride 0.9% 250 ML 250 ML IVPB SCH (12:22)
--- NOTE | 2019-05-19 13:53 | PRG ---
DATE OF SERVICE: 05/19/2019 SUBJECTIVE: The patient is seen and examined at the bedside. He is feeling better. He would like to go home soon. OBJECTIVE: VITAL SIGNS: Blood pressure is 154/65, pulse is 68, respiratory rate is 20, and O2 saturation is 96% on 2 L by nasal cannula. His temperature is 98.4. HEENT: His head is atraumatic and normocephalic. Eyes are PERRLA. Sclerae are nonicteric. Oral mucosa is moist. LUNGS: Crackles at both bases present significant. HEART: S1 and S2, somewhat irregular. No S3. No S4. ABDOMEN: Soft, nontender, and nondistended. EXTREMITIES: No signs of any clubbing, cyanosis, or edema. NEUROLOGIC: Intact. LABORATORY DATA: White count of 5.7, hemoglobin 7.4, and hematocrit is 23.2. Normal chemistry except for BUN, which is 28 and calcium 8.6. IMPRESSION: 1. Bilateral pneumonia. 2. Congestive heart failure. 3. Chest pain, resolved. 4. Normocytic anemia with negative guaiac testing, hemoglobin is down to 7.4 today. Xarelto will be restarted by Dr. Rojas. 5. Chronic atrial fibrillation with rate controlled. 6. History of coronary artery disease. 7. Hypertension. 8. Pacemaker. 9. Asbestosis. 10. History of abdominal aortic aneurysm. 11. Hyperlipidemia. PLAN: The patient was seen by Dr. Gracia for Pulmonary evaluation. He thinks that the patient's hemoptysis most likely were in conjunction with significant amounts of the same material that he bloat from his nose and this did not require additional investigation unless it recurs without nosebleed. He is supposed to elevate his head off the bed for life and avoid p.o. intake within 2 hours of sleep including water to minimize his aspiration of material in the evening time. The patient will continue on his antibiotics and DuoNebs and most likely, he will be able to go home tomorrow since he is on oxygen at home. Job ID: [id number]
[2019-05-19] MEDS: Atorvastatin Calcium 40 MG TAB PO SCH (20:17)
[2019-05-19] MEDS: Melatonin 3 MG TAB PO PRN (21:17)
[2019-05-20 04:50] LABS: #Eosinphils 0.9 thou/uL (0.0-0.7); #Lymphocytes 1.2 thou/uL (1.20-3.40); #Monocytes 0.8 thou/uL (0.11-0.59); #Neutrophils 2.8 thou/uL (1.40-6.50); %Basophils 0.8 % (0.0-1.0); %Eosinophils 15.8 % (0.0-10.0); %Lymphocytes 20.3 % (21.0-51.0); %Monocytes 13.4 % (0.0-10.0); %Neutrophils 49.7 % (42.0-75.0); Hemoglobin 7.5 g/dL (14.0-18.0); Mean Corpuscular HGB CONC 31.5 g/dL (32.0-36.0); Mean Corpuscular Hemoglobin 27.7 pg (27.0-31.0); Mean Corpuscular Volume 87.9 fL (78.0-98.0); Mean Platelet Volume 6.7 fL (7.4-10.4); Platelet Count 225 thou/uL (130-400); Red Blood Cell (RBC) Count 2.72 mill/uL (4.70-6.10); White Blood Cell (WBC) Count 5.7 thou/uL (4.8-10.8)
[2019-05-20 05:10] LABS: Anion Gap 12 mmol/L (10-20); BUN (Urea Nitrogen) 24 mg/dL (8.4-25.7); Calc. Creatinine Clearance 73 mL/min (70-130); Calcium 8.5 mg/dL (7.8-10.44); Carbon Dioxide 27 mmol/L (23-31); Chloride 105 mmol/L (98-107); Estimated GFR-MDRD 72; Glucose 91 mg/dL (83-110); Potassium 3.7 mmol/L (3.5-5.1); Sodium 140 mmol/L (136-145)
[2019-05-20] MEDS: hydrALAZINE 25 MG TAB PO SCH ×2 (08:47→12:56)
[2019-05-20] MEDS: Carvedilol 25 MG TAB PO SCH (08:48)
[2019-05-20] MEDS: Famotidine 20 MG TAB PO SCH (08:48)
[2019-05-20] MEDS: Potassium Chloride 20 MEQ TAB PO SCH (08:49)
[2019-05-20] MEDS: Tamsulosin HCl 0.4 MG CAP PO SCH (08:49)
[2019-05-20] MEDS: Furosemide 20 MG TAB PO SCH ×2 (08:49→13:00)
[2019-05-20] MEDS: cefTRIAXone\\ROCEPHIN 1 GM in Sodium Chloride 0.9% 100 ML IVPB SCH (10:56)
[2019-05-20 11:11] VITALS: BP 131/60; TEMP 98.5
[2019-05-20] MEDS: Azithromycin 500 MG in Sodium Chloride 0.9% 250 ML 250 ML IVPB SCH (13:00)
--- NOTE | 2019-05-20 13:35 | DIS ---
DATE OF ADMISSION: 05/16/2019 DATE OF DISCHARGE: 05/20/2019 DIAGNOSES AT THE TIME OF DISCHARGE: 1. Bilateral pneumonia. 2. Congestive heart failure. 3. Chest pain, resolved. 4. Normocytic anemia with negative guaiac testing. 5. Chronic atrial fibrillation with rate control. 6. History of coronary artery disease. 7. Hypertension. 8. Pacemaker. 9. Asbestosis. 10. History of abdominal aortic aneurysm. 11. Hyperlipidemia. CONSULTANTS: Luis A Rojas MD, Cardiology Service and Dr. Solis Gracia MD, Pulmonary Service. HOSPITAL COURSE: The patient is an 84-year-old male, who was admitted to the hospital with complaints of shortness of breath associated with dry cough, fever, and chills. He was found to have pneumonia on the CT and the chest x-ray and he got admitted to the hospital for further management of his problem. He denied any vomiting. At the time of emergency room evaluation, his white count was 10.5, hemoglobin 9.3, hematocrit 29.9, platelet count 267,000. INR was 2.3. Prothrombin time was 25.2, creatinine 1.24, BUN 21, sodium 140, potassium 3.7, chloride 104, CO2 of 24, glucose 142. BNP was elevated at 469. Troponin I 0.02. Influenza A and B negative. Occult blood test negative and procalcitonin 0.05. Electrocardiogram showed atrial fibrillation with ventricular rate controlled with T-wave inversions in lead II, III and aVR and lateral precordial leads. CT of the chest showed focal areas of consolidation in the bilateral lower lobes suspicious for multifocal pneumonia along with cardiomegaly with interstitial prominence, bilateral, likely sequelae of CHF with interstitial edema. Also, there was some mediastinal lymphadenopathy likely reactive. Chest x-ray shows some congestive heart failure. The patient got admitted to the hospital, placed on azithromycin and Rocephin for pneumonia. Cardiology consultation was requested and the patient was seen by Dr. Rojas. The patient received DuoNeb q.4 hours. Also, he was placed on IV Lasix. He was continued on Xarelto and potassium. Subsequently, he developed some hemoptysis and director data architecture was called. The patient was seen by Dr. Gracia who felt that this was most likely related to his nose and the diagnosis of hemoptysis did not require any further diagnostic workup. Xarelto was stopped for one day, then restarted by application consultant. The patient is doing well today. His blood pressure is 131/60, pulse is 69, temperature is 98.5, respiratory rate is 18, O2 saturation is 98% on 2L by nasal cannula. He is seen and examined before his discharge. He is discharged home in good condition. He is going to stay on low-salt diet. ACTIVITIES: As tolerated. He will continue his oxygen. His antibiotic was changed to levofloxacin 500 mg daily for the next 10 days, also he will continue his Lasix 20 mg twice a day, Xarelto 20 mg daily, Flomax 0.4 mg once a day, hydralazine 50 mg 3 times a day, atorvastatin 40 mg at bedtime, carvedilol 12.5 mg twice a day, furosemide as mentioned above, and potassium chloride 20 mEq twice a day. FOLLOWUP: He is going to follow up with his primary care physician, Dr. White, in [place] and he needs BNP and chest x-ray at the time of his visit with the doctor. Job ID: [id number]
[2019-05-20] MEDS ORDERED: Rivaroxaban 10 MG TAB PO SCH (18:00)
--- NOTE | 2019-05-22 02:47 | PQF ---
KEARA PARKS ZBIGNIEW A MD [id number] [facility] [id number] CLINICAL DOCUMENTATION CLARIFICATION FORM: POST DISCHARGE Addendum to original discharge summary date: ____ Late entry note date: __ DATE: 05/22/2019 ATTN: Lamont Gloria Please exercise your independent, professional judgment in responding to the clarification form. Clinical indicators are provided on the bottom of this form for your review Please check appropriate box(s): ACUTE EXACERBATION HEART FAILURE: A. TYPE: [ ] Systolic / HFrEF [ x ] Diastolic / HFpEF [ ] Combined Systolic / Diastolic [ ] Other diagnosis [ ] Unable to determine In addition, please specify: Present on Admission (POA): [ x] Yes [ ] No [ ] Unable to determine For continuity of documentation, please document condition throughout progress notes and discharge summary. Thank You. CLINICAL INDICATORS - SIGNS / SYMPTOMS / LABS Laboratory 05/16 BNP 469 H&P p1 05/16 Dr Felder presented with sudden onset of SOB associated with dry cough, fever and chills H&P p1 05/16 Dr Felder Apparently, he was doing quite well until last night when everything started. He was found to have Pneumonia on the CT and x- ray of his chest and send to our facility for further management of his Pneumonia and CHF H&P p1 05/16 Dr Felder He denies any vomiting but he had some nausea H&P p2 05/16 Dr Felder PE Lungs: Bilateral rales and some wheezing present on both sides of lung RISKS: H&P p1 05/16 84-year-old Male H&P p1 05/16 Congestive heart failure H&P p1 05/16 Hypertension H&P p3 05/16 Exacerbation of Congestive heart failure TREATMENTS: Respiratory Panel 05/16 Oxygen 4 L via Nasal Cannula JUN 16 IV Lasix JUN 16 Duoneb H&P p3 05/16 Patient transfer to telemetry floor Cardiology Consult 05/16 Chino Vargas (This form is maintained as a part of the permanent medical record) 2014 [employer], [employer]. All Rights Reserved [email or web address]
--- NOTE | 2019-05-22 02:50 | PQF ---
KEARA PARKS ZBIGNIEW A MD [id number] [facility] [id number] CLINICAL DOCUMENTATION CLARIFICATION FORM: POST DISCHARGE Addendum to original discharge summary date: ____ Late entry note date: __ DATE: 05/22/2019 ATTN: Lamont Gloria Please exercise your independent, professional judgment in responding to the clarification form. Clinical indicators are provided on the bottom of this form for your review Please check appropriate box(s) to clarify if the following diagnosis has been ruled in or ruled out: Acute on chronic Hypoxic Respiratory Failure [ x ] Ruled in diagnosis [ x ] Continue to treat [ ] Resolved [ ] Ruled out diagnosis [ ] Cannot rule out diagnosis [ ] Other diagnosis [ ] Unable to determine In addition, please specify: Present on Admission (POA): [ ] Yes [ ] No [ ] Unable to determine For continuity of documentation, please document condition throughout progress notes and discharge summary. Thank You. CLINICAL INDICATORS - SIGNS / SYMPTOMS / LABS H&P p1 05/16 Dr Felder presented with sudden onset of SOB associated with dry cough, fever and chills H&P p1 05/16 Dr Felder Apparently, he was doing quite well until last night when everything started. He was found to have Pneumonia on the CT and x- ray of his chest and send to our facility for further management of his Pneumonia and CHF H&P p2 05/16 Dr Felder PE Lungs: Bilateral rales and some wheezing present on both sides of lung RISK FACTORS H&P p1 05/16 84-year-old Male H&P p1 05/16 Hypertension H&P p3 05/16 Exacerbation of Congestive heart failure H&P 05/16 Pneumonia Consult 05/18 Acute on chronic hypoxic respiratory failure TREATMENTS IV Ceftriaxone IV Azithromycin JUN 16 IV Lasix Cardiology Consult 05/16 Chino Vargas Respiratory Consult 05/18 Solis Agudelo Respiratory Panel 05/16 Oxygen 4 L via Nasal Cannula (This form is maintained as a part of the permanent medical record) 2014 [employer], [employer] All Rights Reserved [email or web address]
--- NOTE | 2019-05-22 02:52 | PQF ---
KEARA PARKS ZBIGNIEW A MD [id number] [address] [place] [address] [id number] CLINICAL DOCUMENTATION CLARIFICATION FORM: POST DISCHARGE Addendum to original discharge summary date: ____ Late entry note date: __ DATE: 05/22/2019 ATTN: Lamont Gloria Please exercise your independent, professional judgment in responding to the clarification form. Clinical indicators are provided on the bottom of this form for your review Please check appropriate box(s): [ ] Aspiration Pneumonia [ ] Empirically treating Gram Negative Pneumonia [ ] Empirically treating Anaerobic Pneumonia [ ] Pneumonia secondary to (specify organism / underlying disease) [ ] Simple Pneumonia (community acquired - nosocomial) [x ] Pneumonia of unknown etiology [ ] Other diagnosis [ ] Unable to determine In addition, please specify: Present on Admission (POA): [ x ] Yes [ ] No [ ] Unable to determine For continuity of documentation, please document condition throughout progress notes and discharge summary. Thank You. CLINICAL INDICATORS - SIGNS / SYMPTOMS / LABS H&P p1 05/16 Dr Felder presented with sudden onset of SOB associated with dry cough, fever and chills H&P p1 05/16 Dr Felder Apparently, he was doing quite well until last night when everything started. He was found to have Pneumonia on the CT and x- ray of his chest and send to our facility for further management of his Pneumonia and CHF H&P p1 05/16 Dr Felder He denies any vomiting but he had some nausea H&P p2 05/16 Dr Felder PE Lungs: Bilateral rales and some wheezing present on both sides of lung Consult p2 05/18 Dr Brading Community acquired pneumonia secondary to likely aspiration event in the supine position RISK FACTORS H&P p1 05/16 84-year-old Male H&P p1 05/16 Hypertension H&P p3 05/16 Exacerbation of Congestive heart failure H&P p3 05/16 Pneumonia Consult p2 05/18 Acute on chronic hypoxic respiratory failure TREATMENTS: IV Ceftriaxone IV Azithromycin Cardiology Consult 05/16 Chino Vargas Respiratory Consult 05/18 Solis Agudelo Respiratory Panel 05/16 Oxygen 4 L via Nasal Cannula (This form is maintained as a part of the permanent medical record) 2014 [employer], [employer]. All Rights Reserved [email or web address]
--- NOTE | 2019-05-22 02:54 | PQF ---
KEARA PARKS ZBIGNIEW A MD [id number] [address] [place] [address] [id number] CLINICAL DOCUMENTATION CLARIFICATION FORM: POST DISCHARGE Addendum to original discharge summary date: ____ Late entry note date: __ DATE:05/22/2019 ATTN: Lamont Gloria Please exercise your independent, professional judgment in responding to the clarification form. Clinical indicators are provided on the bottom of this form for your review Please check appropriate box(es): [ ] Sepsis due to Pneumonia [ ] Severe sepsis with acute organ dysfunction of: (Examples: respiratory failure, encephalopathy, acute kidney failure, other) [ ] Septic Shock [ ] Localized infection without sepsis [ ] Other diagnosis [ x] Unable to determine In addition, please specify: Present on Admission (POA): [ ] Yes [ ] No [ x ] Unable to determine For continuity of documentation, please document condition throughout progress notes and discharge summary. Thank You. CLINICAL INDICATORS - SIGNS / SYMPTOMS / LABS H&P p1 05/16 Dr Felder presented with sudden onset of SOB associated with dry cough, fever and chills H&P p1 05/16 Dr Felder Apparently, he was doing quite well until last night when everythung started. He was found to have Pneumonia on the CT and x- ray of his chest and send to our facility for further management of his Pneumonia and CHF H&P p1 05/16 Dr Felder He denies any vomiting but he had some nausea H&P p2 05/16 Dr Felder PE Lungs: Bilateral rales and some wheezing present on both sides of lung Consult p2 05/18 Dr Gracia Community acquired pneumonia secondary to likely aspiration event in the supine position RISK FACTORS H&P p1 05/16 84-year-old Male H&P p1 05/16 Hypertension H&P p3 05/16 Exacerbation of Congestive heart failure H&P p3 05/16 Pneumonia Consult p2 05/18 Acute on chronic hypoxic respiratory failure TREATMENTS: IV Ceftriaxone IV Azithromycin Cardiology Consult 05/16 Chino Vargas Respiratory Consult 05/18 Solis Agudelo Respiratory Panel 05/16 Oxygen 4 L via Nasal Cannula (This form is maintained as a part of the permanent medical record) 2014 [employer], [employer]. All Rights Reserved [email or web address]
== END 2019-05-20 13:30 | disposition home or self-care (01) | DRG 291 ==
LOC: ERS 00:55 → T4-A 03:15 → 2SW 11:44 → 2NO 05-18 22:28
PROVIDERS: ADMIT Internal Medicine; ATTEND Internal Medicine
DX: I11.0 Hypertensive heart disease with heart failure (principal); J18.9 Pneumonia, unspecified organism; J96.21 Acute and chronic respiratory failure with hypoxia; I48.20 Chronic atrial fibrillation, unspecified; R04.2 Hemoptysis; I50.33 Acute on chronic diastolic (congestive) heart failure; I42.9 Cardiomyopathy, unspecified; D64.9 Anemia, unspecified; I25.10 Atherosclerotic heart disease of native coronary artery without angina pectoris; K21.9 Gastro-esophageal reflux disease without esophagitis; J61 Pneumoconiosis due to asbestos and other mineral fibers; E78.5 Hyperlipidemia, unspecified; M19.90 Unspecified osteoarthritis, unspecified site; Z95.0 Presence of cardiac pacemaker; Z90.49 Acquired absence of other specified parts of digestive tract; Z88.0 Allergy status to penicillin; Z88.8 Allergy status to other drugs, medicaments and biological substances; Z79.899 Other long term (current) drug therapy; Z79.01 Long term (current) use of anticoagulants
CPT/HCPCS: 36415; 71046; 80048; 82565; 85014; 85018; 85025; 85049; 93798; 94640; 99285; J0456; J0696; J1940; J3490; J7050; J7620

== ENCOUNTER 2019-07-25 12:34 | Emergency (ER) | payer MEDICARE ==
[2019-07-25 12:59] LABS: #Lymphocytes 0.7 thou/uL (1.20-3.40); #Neutrophils 10.4 thou/uL (1.40-6.50); %Basophils 0.1 % (0.0-1.0); %Monocytes 8.3 % (0.0-10.0); %Neutrophils 85.6 % (42.0-75.0); Hemoglobin 10.6 g/dL (14.0-18.0); Mean Corpuscular HGB CONC 31.6 g/dL (32.0-36.0); Mean Corpuscular Hemoglobin 27.3 pg (27.0-31.0); Mean Corpuscular Volume 86.4 fL (78.0-98.0); Mean Platelet Volume 7.1 fL (7.4-10.4); Platelet Count 262 thou/uL (130-400); RBC Distribution Width 18.5 % (11.5-14.5); Red Blood Cell (RBC) Count 3.87 mill/uL (4.70-6.10); White Blood Cell (WBC) Count 12.2 thou/uL (4.8-10.8)
--- NOTE | 2019-07-25 13:06 | RAD ---
EXAM: CHEST ONE VIEW HISTORY: Dyspnea. Shortness of breath. CHF exacerbation. COMPARISON: 11/12/2018 FINDINGS: Dual lead left subclavian cardiac pacemaker device remains in place. Cardiac silhouette remains enlar ged. Pulmonary vasculature is at the upper limits of normal but similar to prior study. No consolidation or pleural fluid is seen. Vascular calcifications are seen in the thoracic aorta. Posto perative changes related to right glenohumeral prosthesis and prior rotator cuff repair on the left are again present IMPRESSION: 1. Cardiomegaly without overt CHF. 2. No acute cardiopulmonary process.
[2019-07-25 13:24] LABS: ALT (SGPT) 8 U/L (8-55); AST (SGOT) 12 U/L (5-34); Alkaline Phosphatase 64 U/L (40-110); Anion Gap 10 mmol/L (10-20); BUN (Urea Nitrogen) 23 mg/dL (8.4-25.7); Bilirubin, Total 0.9 mg/dL (0.2-1.2); Calc. Creatinine Clearance 0 mL/min (70-130); Calcium 9.1 mg/dL (7.8-10.44); Carbon Dioxide 34 mmol/L (23-31); Chloride 99 mmol/L (98-107); Estimated GFR-MDRD 71; Globulin 3.4 g/dL (2.4-3.5); Glucose 128 mg/dL (83-110); Protein, Total 7.4 g/dL (5.8-8.1); Sodium 139 mmol/L (136-145)
--- NOTE | 2019-07-25 14:21 | CT ---
Exam: Head CT without contrast HISTORY: Confusion COMPARISON: none FINDINGS: Hemorrhage: No intraparenchymal hemorrhage or extra-axial hematoma. Brain parenchyma: Cortical bullard-white matter differentiation is preserved. No mass effect or midline shift. Basilar cisterns are patent.. Bullard-white matter hypodensities due to chronic small vessel ischemic change Ventricular system: Ventricles and sulci are patent and symmetric. Calvarium: Intact. Sinuses and mastoid air cells: Adequate aeration. IMPRESSION: No acute intracranial process.
[2019-07-25 16:17] LABS: Troponin I 0.014 ng/mL (< 0.028)
--- NOTE | 2019-07-27 13:10 | EKG ---
Test Reason : Blood Pressure : / mmHG Vent. Rate : 071 BPM Atrial Rate : 060 BPM P-R Int : 000 ms QRS Dur : 094 ms QT Int : 434 ms P-R-T Axes : 000 036 -82 degrees QTc Int : 471 ms Atrial fibrillation with frequent ventricular-paced complexes and with premature ventricular or aberr antly conducted complexes Prolonged QT Abnormal ECG Confirmed by REUBEN JALLOH, ELI ([id number]), scientific editor MACHO SMITH ([id number]) on 07/27/2019 1:10:17 PM Referred By: Confirmed By:ELI ALEXIS MD
== END 2019-07-25 17:00 | disposition home or self-care (01) ==
LOC: ERS 12:34
DX: R41.0 Disorientation, unspecified (principal); I48.91 Unspecified atrial fibrillation; I11.0 Hypertensive heart disease with heart failure; I50.9 Heart failure, unspecified; Z87.891 Personal history of nicotine dependence; Z79.899 Other long term (current) drug therapy
CPT/HCPCS: 36415; 70450; 71045; 80053; 82553; 83880; 84484; 85025; 93005